=== PATIENT | female | born 1995 ===

== ENCOUNTER 2018-07-05 06:14 | Observation (INO) | payer BC, OTHER ==
[2018-07-05 06:15] VITALS: BMI 26.6
[2018-07-05] MEDS ORDERED: Sodium Chloride 0.9% 1,000 ML IV STA (07:27)
[2018-07-05 07:45] LABS: BASO # 0.02 K/mm3 (0.0-2.0); BASO % 0.2 % (0.0-3.0); EOS # 0.1 (0.0-0.7); EOS % 0.5 % (1.5-5.0); HEMOGLOBIN 14.1 g/dL (12.0-16.0); LYMPH # 3.1 (1.2-3.4); LYMPH % 24.3 % (22.0-35.0); MEAN CELL VOLUME 88.7 fl (80.0-105.0); MEAN CORPUSCULAR HEMOGLOBIN 30.1 pg (25.0-35.0); MONO # 0.5 (0.1-0.6); MONO % 4.1 % (1.0-6.0); RBC 4.68 10^6/uL (3.5-6.1); RED CELL DISTRIBUTION WIDTH 12.6 % (11.5-14.5); WHITE BLOOD COUNT 12.8 10^3/uL (4.5-11.0)
[2018-07-05 07:55] LABS: INR 1.04; PARTIAL THROMBOPLASTIN TIME 34.3 Seconds (26.9-38.3); PROTHROMBIN TIME 11.8 SECONDS (9.4-12.5)
[2018-07-05 07:57] LABS: ALB/GLOB RATIO 1.4 (1.1-1.8); ALBUMIN 4.9 g/dL (3.0-4.8); ALT/SGPT 30 U/L (7-56); AST/SGOT 36 U/L (14-36); BLOOD UREA NITROGEN 15 mg/dL (7-21); CALCIUM 9.5 mg/dL (8.4-10.5); GFR NON-AFRICAN AMERICAN > 60; LIPASE 31 U/L (23-300)
[2018-07-05 08:05] LABS: URINE BILIRUBIN NEGATIVE (NEGATIVE); URINE BLOOD LARGE (NEGATIVE); URINE GLUCOSE (UA) NEGATIVE (NEGATIVE); URINE LEUKOCYTE ESTERASE TRACE Leu/uL (NEGATIVE); URINE PROTEIN 100 mg/dL (<30 mg/dL); URINE UROBILINOGEN 0.2 E.U./dL (<1 E.U./dL)
[2018-07-05 08:07] LABS: URINE APPEARANCE SL CLOUDY (CLEAR); URINE COLOR LIGHT RED (YELLOW)
--- NOTE | 2018-07-05 08:11 | ED PDOC ---
Arrival/HPI - General Chief Complaint: GI Problem Time Seen by Provider: 07/05/18 07:03 Historian: Patient - History of Present Illness Narrative History of Present Illness (Text): 07/05/18 07:40 22 year old female, with past medical history of questionable gallbladder issue, presents to the ED for evaluation of abdominal pain, nausea and vomiting since waking up at 5 am this morning. Patient states pain is localized to her ep igastric and ana-umbilical region, inconsistent with her cramping menstrual cycle pain. Patient reports associated nausea and multiple episodes of vomiting (4-5), with some streak of blood in emesis. Patient reports eating tuna salad at 10pm last night and states no one else ate the same salad in her family. Patient denies any other somatic complaints. Patient denies any fevers, chills, headache, dizziness, chest pain, shortness of breath, dyspnea on exertion, cough, hematochezia, constipation, diarrhea, rash, back pain, neck pain, or any other complaints. Patient states she is currently on her menstrual cycle. Time/Duration: 1-3 hours Symptom Onset: Gradual Symptom Course: Unchanged Activities at Onset: Light Context: Home Past Medical History - Provider Review Nursing Documentation Reviewed: Yes - Infectious Disease Hx of Infectious Diseases: None - Cardiac Hx Cardiac Disorders: No - Pulmonary Hx Respiratory Disorders: No - Neurological Hx Neurological Disorder: No - HEENT Hx HEENT Disorder: No - Renal Hx Renal Disorder: No - Endocrine/Metabolic Hx Endocrine Disorders: No - Hematological/Oncological Hx Blood Disorders: No - Integumentary Hx Dermatological Disorder: No - Musculoskeletal/Rheumatological Hx Musculoskeletal Disorders: No Hx Falls: No - Gastrointestinal Hx Gastrointestinal Disorders: Yes Hx Gall Bladder Disease: Yes (GALLSTONES ,GALLBLADDER POLYPS) - Genitourinary/Gynecological Hx Genitourinary Disorders: No - Psychiatric Hx Depression: No Hx Emotional Abuse: No Hx Physical Abuse: No Hx Substance Use: No - Anesthesia Hx Anesthesia: No - Suicidal Assessment Feels Threatened In Home Enviroment: No Family/Social History - Physician Review Nursing Documentation Reviewed: Yes Family/Social History: Unknown Family HX Smoking Status: Unknown If Ever Smoked Hx Alcohol Use: No Hx Substance Use: No Hx Substance Use Treatment: No Allergies/Home Meds Allergies/Adverse Reactions: Allergies No Known Allergies Allergy (Verified 06/04/16 14:36) Home Medications: Home Meds Medication Instructions Recorded Confirmed No Known Home Med 12/13/11 07/05/18 Review of Systems - Physician Review All systems were reviewed & negative as marked: Yes - Review of Systems Constitutional: absent: Fatigue, Weight Change, Fevers Eyes: absent: Vision Changes ENT: absent: Hearing Changes Respiratory: absent: SOB, Cough Cardiovascular: absent: Chest Pain Gastrointestinal: Abdominal Pain, Nausea, Vomiting. absent: Constipation, Diarrhea, Hematochezia Genitourinary Female: absent: Dysuria, Frequency, Hematuria, Urine Output Changes Musculoskeletal: absent: Back Pain, Neck Pain Skin: absent: Rash Neurological: absent: Headache, Dizziness Psychiatric: absent: Anxiety Physical Exam Vital Signs Reviewed: Yes Vital Signs Temp Pulse Resp BP Pulse Ox 07/05/18 06:26 97.7 F 70 18 141/110 H 97 Temperature: Afebrile Blood Pressure: Hypertensive Pulse: Regular Respiratory Rate: Normal Appearance: Positive for: Well-Appearing, Non-Toxic, Comfortable Pain Distress: None Mental Status: Positive for: Alert and Oriented X 3 - Systems Exam Head: Present: Atraumatic, Normocephalic Pupils: Present: PERRL Extroacular Muscles: Present: EOMI Conjunctiva: Present: Normal Mouth: Present: Moist Mucous Membranes Neck: Present: Normal Range of Motion Respiratory/Chest: Present: Clear to Auscultation, Good Air Exchange. No: Respiratory Distress, Accessory Muscle Use Cardiovascular: Present: Regular Rate and Rhythm, Normal S1, S2. No: Murmurs Abdomen: Present: Tenderness (Epigastric and RUQ ana-umbilical tenderness). No: Distention, Peritoneal Signs Back: Present: Normal Inspection Upper Extremity: Present: Normal Inspection. No: Cyanosis, Edema Lower Extremity: Present: Normal Inspection. No: Edema Neurological: Present: GCS=15, CN II-XII Intact, Speech Normal Skin: Present: Warm, Dry, Normal Color. No: Rashes Psychiatric: Present: Alert, Oriented x 3, Normal Insight, Normal Concentration Medical Decision Making ED Course and Treatment: 07/05/18 07:43 Impression: 22 year old female presents to the Emergency department for evaluation abdominal pain, nausea and vomiting. RUQ, Epigastric and Ana-umbilical pain on exam. No peritoneal signs. No chest pain or sob. No back pain. No constipation or diarrhea. ?Gallbladder issue vs Appdx vs gastritis. Pt notes pain 4d prior followed by no pain x2d until this AM. She notes this pain she feels now is different from her normal pain. Differential Diagnosis included but are not limited to: -- Cholecystitis -- Cholelithiasis -- Appendicitis Plan: -- Labs -- CT of Abdomen/Pelvis -- Pepcid -- IV Fluids -- Zofran -- Urine Culture -- Urinalysis -- US of Gallbladder and Common duct -- Reassess and disposition Prior Visits: Notes and results from previous visits were reviewed. Progress Notes: 07/05/18 07:40 EKG reviewed, shows NSR @ 62 bpm, No STEMI. 07/05/18 09:04 CT of Abdomen/Pelvis reviewed by radiologist, shows: IMPRESSION: Unremarkable contrast enhanced CT of the abdomen and pelvis. No evidence of appendicitis 07/05/18 10:03 labs largely unremarkable. Urine w/ WBC- 2-5 WBC w/ bacteria and nitrites. no CVAT or suprapubic pain. Pending US. Pt in NAD. Well appearing. 07/05/18 11:01 Abdominal US reviewed by radiologist, shows: IMPRESSION: Cholelithiasis. No sonographic evidence of acute cholecystitis. Similar findings identified on the ultrasound performed 06/04/2016. 07/05/18 11:29 Pt endorsed continued pain. Given RUQ pain, surgery consulted. 07/05/18 12:37 No intervention at this time per surgery Appreciate consultation w/ Dr. Osborne: PMD: to admit to his service - Lab Interpretations Lab Results: PT 11.8 SECONDS (9.4-12.5) 07/05/18 06:40 INR 1.04 07/05/18 06:40 APTT 34.3 Seconds (26.9-38.3) 07/05/18 06:40 Total Bilirubin 0.2 mg/dL (0.2-1.3) 07/05/18 06:40 AST 36 U/L (14-36) 07/05/18 06:40 ALT 30 U/L (7-56) 07/05/18 06:40 Alkaline Phosphatase 94 U/L (38-126) 07/05/18 06:40 Total Protein 8.5 g/dL (5.8-8.3) H 07/05/18 06:40 Albumin 4.9 g/dL (3.0-4.8) H 07/05/18 06:40 Globulin 3.6 gm/dL 07/05/18 06:40 Albumin/Globulin Ratio 1.4 (1.1-1.8) 07/05/18 06:40 Lipase 31 U/L (23-300) 07/05/18 06:40 - RAD Interpretation Radiology Orders: 07/05/18 07:43 ABD & PELVIS IV CONTRAST ONLY [CT] Stat GALLBLADDER & COMMON DUCT [US] Stat Poultry Helper: Radiologist - EKG Interpretation Interpreted by ED Physician: Yes Type: 12 lead EKG - Medication Orders Current Medication Orders: Sodium Chloride (Sodium Chloride 0.9%) 1,000 mls @ 999 mls/hr IV .Q1H1M STA Stop: 07/05/18 08:27 Last Admin: 07/05/18 07:41 Dose: 999 mls/hr eMAR Start Stop Document 07/05/18 07:41 MA (Rec: 07/05/18 07:41 MA [id number]) Intravenous Solution Start Date 07/05/18 Start Time 07:41 Discontinued Medications Famotidine (Pepcid) 20 mg IVP STAT STA Stop: 07/05/18 07:56 Ondansetron HCl (Zofran Inj) 4 mg IVP STAT STA Stop: 07/05/18 07:28 Last Admin: 07/05/18 07:41 Dose: 4 mg IVP Administration Document 07/05/18 07:41 MA (Rec: 07/05/18 07:41 MA [id number]) Charges for Administration # of IVP Administrations 1 - Scribe Statement The provider has reviewed the documentation as recorded by the Adanibbravo Horn. All medical record entries made by the Adanibbravo were at my direction and personally dictated by me. I have reviewed the chart and agree that the record accurately reflects my personal performance of the history, physical exam, medical decision making, and the department course for this patient. I have also personally directed, reviewed, and agree with the discharge instructions and disposition. Disposition/Present on Arrival - Present on Arrival Any Indicators Present on Arrival: No History of DVT/PE: No History of Uncontrolled Diabetes: No Urinary Catheter: No History of Decub. Ulcer: No History Surgical Site Infection Following: None - Disposition Have Diagnosis and Disposition been Completed?: Yes Diagnosis: UTI (urinary tract infection), Abdominal pain Disposition Time: 12:37 Patient Problems: Current Active Problems Problem Status Onset Abdominal pain Acute UTI (urinary tract infection) Acute Condition: STABLE
[2018-07-05 08:16] LABS: URINE BACTERIA MOD /hpf; URINE RBC 25 - 30 /hpf (0-2)
[2018-07-05 08:17] LABS: URINE COARSE GRANULAR CAST TRACE /hpf
[2018-07-05] MEDS ORDERED: Iohexol 350 MG/100 ML VIAL ONE (08:35)
[2018-07-05] MEDS ORDERED: Morphine 4 mg/ml ISec IVP STA (08:56)
--- NOTE | 2018-07-05 09:01 | CT ---
Date of service: 07/05/2018 PROCEDURE: CT Abdomen and Pelvis with contrast HISTORY: ruq, periumbilical pain COMPARISON: None. TECHNIQUE: Contrast dose: 100 cc of Omni 350 Radiation dose: Total exam DLP = 771.25 mGy-cm. This CT exam was performed using one or more of the following dose reduction techniques: Automated exposure control, adjustment of the mA and/or kV according to patient size, and/or use of iterative reconstruction technique. FINDINGS: LOWER THORAX: Unremarkable. LIVER: Unremarkable. No gross lesion or ductal dilatation. GALLBLADDER AND BILE DUCTS: Unremarkable. PANCREAS: Unremarkable. No gross lesion or ductal dilatation. SPLEEN: Unremarkable. ADRENALS: Unremarkable. No mass. KIDNEYS AND URETERS: Unremarkable. No hydronephrosis. No solid mass. VASCULATURE: Unremarkable. No aortic aneurysm. No aortic atherosclerotic calcification or mural plaque present. BOWEL: Unremarkable. No obstruction. No gross mural thickening. APPENDIX: Normal appendix. PERITONEUM: Unremarkable. No free fluid. No free air. LYMPH NODES: Unremarkable. No enlarged lymph nodes. BLADDER: Unremarkable. REPRODUCTIVE: Unremarkable. BONES: No acute fracture. OTHER FINDINGS: None. IMPRESSION: Unremarkable contrast enhanced CT of the abdomen and pelvis. No evidence of appendicitis
--- NOTE | 2018-07-05 10:53 | US ---
Date of service: 07/05/2018 HISTORY: Right upper quadrant pain. COMPARISON: 06/04/2016 abdominal ultrasound. July 05, 2018 CT abdomen and pelvis. TECHNIQUE: Sonographic evaluation of the right upper quadrant of the abdomen. FINDINGS: LIVER: Measures 16.0 cm in length. Patent portal vein. Portal venous flow: Hepatopetal. Unremarkable echogenicity of the liver parenchyma. No mass. No intrahepatic bile duct dilatation. GALLBLADDER: Cholelithiasis. Negative study for gallbladder wall thickening, pericholecystic fluid, sonographic Navarrete's sign. COMMON BILE DUCT: Measures 4.7 mm. No stones. No dilatation. PANCREAS: Unremarkable as visualized. No mass. No ductal dilatation. RIGHT KIDNEY: Measures 0.2 x 9.4 cm in length. Normal echogenicity. No calculus, mass, or hydronephrosis. AORTA: No aneurysmal dilatation. IVC: Unremarkable. OTHER FINDINGS: None . IMPRESSION: Cholelithiasis. No sonographic evidence of acute cholecystitis. Similar findings identified on the ultrasound performed 06/04/2016.
[2018-07-05] MEDS ORDERED: cefTRIAXone 1 gm 1 GM/100 ML BAG IVPB ONE (12:35)
[2018-07-05] MEDS ORDERED: Morphine 2 mg/ml ISec IVP PRN (13:01)
[2018-07-05] MEDS: Sodium Chloride 0.45% 1,000 ML IV SCH (14:14)
--- NOTE | 2018-07-05 14:46 | CP.PCM.CON ---
History of Present Illness - History of Present Illness History of Present Illness: Surgery Consult for Dr. Azul 22F with PMH of gallbladder polyps and mild self-diagnosed GERD presented to the ED with nausea, vomiting, and abdominal pain. It began at 3:00AM today with vomiting followed by abdominal pain. Pain is located in the hypogastrum, radiates to the periumbilical area, and describes the pain as "squeezing" and 7/10 currently. Patient correlates pain with food consumption. Patient claims vomit was streaked with a small portion of blood. This feeling has happened 2 and 4 years ago, both times lasted 24 hours and was treated with supportive care. Patient is currently on day one of her menstrual period and claims this pain is separate from menstrual cramps. Denies fever/chills, dysuria, shortness of breath, chest pain. PSH: Denies SH: Prior [employer] employment, Denies tobacco, EtOH, recreational drugs FH: Father with "gallbladder issues" ALL: NKDA Meds: Occasional antacids PMD: Dr. Miguel Angel Osborne Review of Systems - Review of Systems Review of Systems: 12 point ROS as per HPI Past Patient History - Infectious Disease Hx of Infectious Diseases: None - Past Social History Smoking Status: Unknown If Ever Smoked - CARDIAC Hx Cardiac Disorders: No - PULMONARY Hx Respiratory Disorders: No - NEUROLOGICAL Hx Neurological Disorder: No - HEENT Hx HEENT Problems: No - RENAL Hx Chronic Kidney Disease: No - ENDOCRINE/METABOLIC Hx Endocrine Disorders: No - HEMATOLOGICAL/ONCOLOGICAL Hx Blood Disorders: No - INTEGUMENTARY Hx Dermatological Problems: No - MUSCULOSKELETAL/RHEUMATOLOGICAL Hx Musculoskeletal Disorders: No Hx Falls: No - GASTROINTESTINAL Hx Gastrointestinal Disorders: Yes Hx Gall Bladder Disease: Yes (GALLSTONES ,GALLBLADDER POLYPS) - GENITOURINARY/GYNECOLOGICAL Hx Genitourinary Disorders: No - PSYCHIATRIC Hx Depression: No Hx Emotional Abuse: No Hx Physical Abuse: No Hx Substance Use: No - SURGICAL HISTORY Hx Surgeries: No - ANESTHESIA Hx Anesthesia: No Meds Allergies/Adverse Reactions: Allergies Allergy/AdvReac Type Severity Reaction Status Date / Time No Known Allergies Allergy Verified 06/04/16 14:36 - Medications Medications: Current Medications Famotidine (Pepcid) 20 mg IVP BID ELIZABET Ceftriaxone Sodium (Rocephin 1 Gram Ivpb) 1 gm in 100 mls @ 100 mls/hr IVPB DAILY ELIZABET; Protocol Sodium Chloride (Sodium Chloride 0.45%) 1,000 mls @ 80 mls/hr IV .[id number] ELIZABET Last Admin: 07/05/18 14:14 Dose: 80 mls/hr Morphine Sulfate (Morphine) 2 mg IVP Q4 PRN PRN Reason: Pain, moderate (4-7) Physical Exam - Constitutional Appears: No Acute Distress - Head Exam Head Exam: ATRAUMATIC, NORMAL INSPECTION, NORMOCEPHALIC - Eye Exam Eye Exam: EOMI, Normal appearance, PERRL - ENT Exam ENT Exam: Mucous Membranes Moist - Neck Exam Neck exam: Positive for: Normal Inspection - Respiratory Exam Respiratory Exam: Clear to Auscultation Bilateral, NORMAL BREATHING PATTERN. absent: Rales, Rhonchi, Wheezes - Cardiovascular Exam Cardiovascular Exam: REGULAR RHYTHM, +S1, +S2 - GI/Abdominal Exam GI & Abdominal Exam: Soft, Tenderness Additional comments: Navarrete sign negative, Hypogastrum and periumbilical tenderness Results - Vital Signs Recent Vital Signs: Last Vital Signs Temp 97.7 F 07/05/18 06:26 Pulse 58 L 07/05/18 13:16 Resp 18 07/05/18 13:16 BP 146/87 07/05/18 13:16 Pulse Ox 95 07/05/18 13:16 - Labs Result Diagrams: 07/05/18 06:40 07/05/18 06:40 Labs: Laboratory Results - last 24 hr 07/05/18 07/05/18 07/05/18 06:40 06:40 06:40 WBC 12.8 H RBC 4.68 Hgb 14.1 Hct 41.5 MCV 88.7 MCH 30.1 MCHC 34.0 RDW 12.6 Plt Count 259 MPV 10.0 Neut % (Auto) 70.9 H Lymph % (Auto) 24.3 [place] % (Auto) 4.1 Eos % (Auto) 0.5 L Baso % (Auto) 0.2 Lymph # (Auto) 3.1 [place] # (Auto) 0.5 Eos # (Auto) 0.1 Baso # (Auto) 0.02 Absolute Neuts (auto) 9.08 H PT 11.8 INR 1.04 APTT 34.3 Sodium Potassium Chloride Carbon Dioxide Anion Gap BUN Creatinine Est GFR ( Amer) Est GFR (Non-Af Amer) Random Glucose Calcium Magnesium Total Bilirubin AST ALT Alkaline Phosphatase Total Protein Albumin Globulin Albumin/Globulin Ratio Lipase Urine Color Light red Urine Appearance Sl cloudy Urine pH 6.0 Ur Specific [place] >= 1.030 Urine Protein 100 H Urine Glucose (UA) Negative Urine Ketones Trace H Urine Blood Large H Urine Nitrate Positive H Urine Bilirubin Negative Urine Urobilinogen 0.2 Ur Leukocyte Esterase Trace H Urine RBC 25 - 30 H Urine WBC 2 - 5 Ur Epithelial Cells 4 - 5 Urine Bacteria Mod Coarse Granular Casts Trace Urine Other Uyeast Blood Type Blood Type Confirm Antibody Screen BBK History Checked 07/05/18 07/05/18 07/05/18 06:40 08:30 09:00 WBC RBC Hgb Hct MCV MCH MCHC RDW Plt Count MPV Neut % (Auto) Lymph % (Auto) [place] % (Auto) Eos % (Auto) Baso % (Auto) Lymph # (Auto) [place] # (Auto) Eos # (Auto) Baso # (Auto) Absolute Neuts (auto) PT INR APTT Sodium 142 Potassium 3.8 Chloride 104 Carbon Dioxide 26 Anion Gap 16 BUN 15 Creatinine 0.8 Est GFR ( Amer) > 60 Est GFR (Non-Af Amer) > 60 Random Glucose 111 H Calcium 9.5 Magnesium 1.9 Total Bilirubin 0.2 AST 36 ALT 30 Alkaline Phosphatase 94 Total Protein 8.5 H Albumin 4.9 H Globulin 3.6 Albumin/Globulin Ratio 1.4 Lipase 31 Urine Color Urine Appearance Urine pH Ur Specific [place] Urine Protein Urine Glucose (UA) Urine Ketones Urine Blood Urine Nitrate Urine Bilirubin Urine Urobilinogen Ur Leukocyte Esterase Urine RBC Urine WBC Ur Epithelial Cells Urine Bacteria Coarse Granular Casts Urine Other Blood Type O POSITIVE Blood Type Confirm O POSITIVE Antibody Screen Negative BBK History Checked No verified bt Assessment & Plan - Assessment and Plan (Free Text) Assessment: Ultrasound: Cholelithiasis Pelvic CT: No evidence of appendicitis This is a 22F with PMH of gall bladder polyps and GERD who presented to the ED with nausea, vomiting, and abdominal pain. Differential Diagnosis includes: -Cholelithiasis - Confirmed -Cystitis -Gastritis Plan: No acute surgery needed at this time. -Pain managment as per primary team -UTI noted on labs; Continue IV rocephin -No surgical intervention warranted at this time -Outpatient followup for elective cholecystectomy with Dr. Jorge Alberto Moya PGY-1
--- NOTE | 2018-07-05 15:37 | CP.PCM.CON ---
<Jaqueline Byrnes - Last Filed: 07/05/18 16:48> History of Present Illness - History of Present Illness History of Present Illness: PGY5 Initial GI Consult Note Edith Magaña is a 22F w/ hx of cholelithiasis who presents to the Er with complaints if eigastric and RUQ abd pain. Pt states that the pain started 3 days prior and it was sudden and located in the epigastrum and RUQ. Pt states that th e pain was intermittent on the first day with associated vomiting and diarrhea (non-bloody). Pt states that her sypmtoms resolved by the next day. as per pt, she again started experiencing RUQ pain, yesterday, she graded it a 10 out of 10 and it was radiating to the back. Pt denies any fever, chills or diaphoresis. Pt states that she has a hx of cholelithiasis and was previously advised to remove her bladder. Denies ant recent travel or sick contacts. Notes having tuna salad before events. PSH: Denies SH: Prior [employer] employment, Denies tobacco, EtOH, recreational drugs FH: Father with "gallbladder issues" Endo Hx: denies ROS: 12 point ROS conducted, neg other than above Past Patient History - Infectious Disease Hx of Infectious Diseases: None - Past Social History Smoking Status: Unknown If Ever Smoked - CARDIAC Hx Cardiac Disorders: No - PULMONARY Hx Respiratory Disorders: No - NEUROLOGICAL Hx Neurological Disorder: No - HEENT Hx HEENT Problems: No - RENAL Hx Chronic Kidney Disease: No - ENDOCRINE/METABOLIC Hx Endocrine Disorders: No - HEMATOLOGICAL/ONCOLOGICAL Hx Blood Disorders: No - INTEGUMENTARY Hx Dermatological Problems: No - MUSCULOSKELETAL/RHEUMATOLOGICAL Hx Musculoskeletal Disorders: No Hx Falls: No - GASTROINTESTINAL Hx Gastrointestinal Disorders: Yes Hx Gall Bladder Disease: Yes (GALLSTONES ,GALLBLADDER POLYPS) - GENITOURINARY/GYNECOLOGICAL Hx Genitourinary Disorders: No - PSYCHIATRIC Hx Depression: No Hx Emotional Abuse: No Hx Physical Abuse: No Hx Substance Use: No - SURGICAL HISTORY Hx Surgeries: No - ANESTHESIA Hx Anesthesia: No Meds Allergies/Adverse Reactions: Allergies Allergy/AdvReac Type Severity Reaction Status Date / Time No Known Allergies Allergy Verified 06/04/16 14:36 - Medications Medications: Current Medications Famotidine (Pepcid) 20 mg IVP BID [facility] Ceftriaxone Sodium (Rocephin 1 Gram Ivpb) 1 gm in 100 mls @ 100 mls/hr IVPB DAILY [facility]; Protocol Sodium Chloride (Sodium Chloride 0.45%) 1,000 mls @ 80 mls/hr IV .[id number] [facility] Last Admin: 07/05/18 14:14 Dose: 80 mls/hr Morphine Sulfate (Morphine) 2 mg IVP Q4 PRN PRN Reason: Pain, moderate (4-7) Pantoprazole Sodium (Protonix Inj) 40 mg IVP DAILY [facility] Physical Exam - Constitutional Appears: In Acute Distress - Head Exam Head Exam: ATRAUMATIC, NORMOCEPHALIC - Eye Exam Eye Exam: Normal appearance - ENT Exam ENT Exam: Mucous Membranes Moist, Normal Exam - Neck Exam Neck exam: Positive for: Normal Inspection - Respiratory Exam Respiratory Exam: Clear to Auscultation Bilateral, NORMAL BREATHING PATTERN. absent: Rales, Rhonchi, Wheezes, Respiratory Distress - Cardiovascular Exam Cardiovascular Exam: REGULAR RHYTHM, +S1, +S2 - GI/Abdominal Exam GI & Abdominal Exam: Normal Bowel Sounds, Soft, Tenderness (epigastric). absent: Distended, Guarding, Hernia, Organomegaly, Rebound - Extremities Exam Extremities exam: Negative for: joint swelling, pedal edema - Back Exam Back exam: NORMAL INSPECTION - Neurological Exam Neurological exam: Alert, Oriented x3 - Psychiatric Exam Psychiatric exam: Normal Affect, Normal Mood - Skin Skin Exam: Dry, Intact, Normal Color, Warm Results - Vital Signs Recent Vital Signs: Last Vital Signs Temp 97.7 F 07/05/18 06:26 Pulse 58 L 07/05/18 13:16 Resp 18 07/05/18 13:16 BP 146/87 07/05/18 13:16 Pulse Ox 95 07/05/18 13:16 - Labs Result Diagrams: 07/05/18 06:40 07/05/18 06:40 Labs: Laboratory Results - last 24 hr 07/05/18 07/05/18 07/05/18 06:40 06:40 06:40 WBC 12.8 H RBC 4.68 Hgb 14.1 Hct 41.5 MCV 88.7 MCH 30.1 MCHC 34.0 RDW 12.6 Plt Count 259 MPV 10.0 Neut % (Auto) 70.9 H Lymph % (Auto) 24.3 Hemphill % (Auto) 4.1 Eos % (Auto) 0.5 L Baso % (Auto) 0.2 Lymph # (Auto) 3.1 Hemphill # (Auto) 0.5 Eos # (Auto) 0.1 Baso # (Auto) 0.02 Absolute Neuts (auto) 9.08 H PT 11.8 INR 1.04 APTT 34.3 Sodium Potassium Chloride Carbon Dioxide Anion Gap BUN Creatinine Est GFR ( Amer) Est GFR (Non-Af Amer) Random Glucose Calcium Magnesium Total Bilirubin AST ALT Alkaline Phosphatase Total Protein Albumin Globulin Albumin/Globulin Ratio Lipase Urine Color Light red Urine Appearance Sl cloudy Urine pH 6.0 Ur Specific Donalds >= 1.030 Urine Protein 100 H Urine Glucose (UA) Negative Urine Ketones Trace H Urine Blood Large H Urine Nitrate Positive H Urine Bilirubin Negative Urine Urobilinogen 0.2 Ur Leukocyte Esterase Trace H Urine RBC 25 - 30 H Urine WBC 2 - 5 Ur Epithelial Cells 4 - 5 Urine Bacteria Mod Coarse Granular Casts Trace Urine Other Uyeast Blood Type Blood Type Confirm Antibody Screen BBK History Checked 07/05/18 07/05/18 07/05/18 06:40 08:30 09:00 WBC RBC Hgb Hct MCV MCH MCHC RDW Plt Count MPV Neut % (Auto) Lymph % (Auto) Hemphill % (Auto) Eos % (Auto) Baso % (Auto) Lymph # (Auto) Hemphill # (Auto) Eos # (Auto) Baso # (Auto) Absolute Neuts (auto) PT INR APTT Sodium 142 Potassium 3.8 Chloride 104 Carbon Dioxide 26 Anion Gap 16 BUN 15 Creatinine 0.8 Est GFR ( Amer) > 60 Est GFR (Non-Af Amer) > 60 Random Glucose 111 H Calcium 9.5 Magnesium 1.9 Total Bilirubin 0.2 AST 36 ALT 30 Alkaline Phosphatase 94 Total Protein 8.5 H Albumin 4.9 H Globulin 3.6 Albumin/Globulin Ratio 1.4 Lipase 31 Urine Color Urine Appearance Urine pH Ur Specific Donalds Urine Protein Urine Glucose (UA) Urine Ketones Urine Blood Urine Nitrate Urine Bilirubin Urine Urobilinogen Ur Leukocyte Esterase Urine RBC Urine WBC Ur Epithelial Cells Urine Bacteria Coarse Granular Casts Urine Other Blood Type O POSITIVE Blood Type Confirm O POSITIVE Antibody Screen Negative BBK History Checked No verified bt Assessment & Plan - Assessment and Plan (Free Text) Assessment: Edith Magaña is a 22F w/ hx of cholelithiasis who presents to the Er with complaints if eigastric and RUQ abd pain. Abd U/S cholithiasis, CT abd: no acute process Abd pain etiology unclear DDx: Gastroenteritis, biliary colic Cholelithiasis Vomiting (resolved) Diarrhea (resolved) Plan: -start Protonix 40mg daily -advance diet to regular -zofran PRN -Surgery on board -conservative management from GI standpoint -no plan for endoscopy at this time -continue abx as per primary team D/W Dr. Sauceda <Navi Sauceda - Last Filed: 07/06/18 08:12> Meds - Medications Medications: Current Medications Famotidine (Pepcid) 20 mg IVP BID [facility] Last Admin: 07/05/18 18:28 Dose: 20 mg Ceftriaxone Sodium (Rocephin 1 Gram Ivpb) 1 gm in 100 mls @ 100 mls/hr IVPB DAILY [facility]; Protocol Sodium Chloride (Sodium Chloride 0.45%) 1,000 mls @ 80 mls/hr IV .[id number] [facility] Last Admin: 07/06/18 05:37 Dose: 80 mls/hr Morphine Sulfate (Morphine) 2 mg IVP Q4 PRN PRN Reason: Pain, moderate (4-7) Pantoprazole Sodium (Protonix Inj) 40 mg IVP DAILY [facility] Last Admin: 07/05/18 15:47 Dose: 40 mg Results - Vital Signs Recent Vital Signs: Last Vital Signs Temp 97.7 F 07/05/18 06:26 Pulse 61 07/05/18 18:07 Resp 16 07/05/18 18:07 BP 121/71 07/05/18 18:07 Pulse Ox 98 07/05/18 18:07 - Labs Result Diagrams: 07/05/18 06:40 07/05/18 06:40 Labs: Laboratory Results - last 24 hr 07/05/18 07/05/18 07/05/18 06:40 08:30 09:00 POC Glucose (mg/dL) Urine RBC 25 - 30 H Urine WBC 2 - 5 Ur Epithelial Cells 4 - 5 Urine Bacteria Mod Coarse Granular Casts Trace Urine Other Uyeast Blood Type O POSITIVE Blood Type Confirm O POSITIVE Antibody Screen Negative BBK History Checked No verified bt 07/06/18 07:30 POC Glucose (mg/dL) 113 H Urine RBC Urine WBC Ur Epithelial Cells Urine Bacteria Coarse Granular Casts Urine Other Blood Type Blood Type Confirm Antibody Screen BBK History Checked Attending/Attestation - Attestation I have fully participated in the care of the patient.: Yes I have reviewed all pertinent clinical information: Yes Notes (Text): 07/06/18 08:11 Abdominal pain Cholelithiasis - Advance diet to low fat as tolerated - Anti-emetic therapy PRN - Follow up surgical recommendations regarding potential cholecystectomy - LFTs normal, continue to monitor - No planned GI intervention, provided patient is tolerating PO diet can likely be discharged home with subsequent outpatient follow up
--- NOTE | 2018-07-05 19:07 | HP ---
DATE OF EXAM: 07/05/2018 HISTORY OF PRESENT ILLNESS: I know her very well from the office. The patient is a 22-year-old female who presents with severe abdominal pain, nausea, vomiting since 5 a.m. this morning, it has not stopped. She is here now still with the same cramping and abdominal pain. Also some problems urinating. PAST MEDICAL HISTORY: She has a past medical history of gallbladder disease in the past. She has had gallstones and gallbladder polyps but no surgery. PAST SURGICAL HISTORY: No surgeries. ALLERGIES: NO KNOWN DRUG ALLERGIES. FAMILY HISTORY: Unknown family history. SOCIAL HISTORY: No smoker. No drinking. No drugs. MEDICATIONS: No medications. REVIEW OF SYSTEMS: No fatigue. No fevers. No vision changes. No hearing changes. No shortness of breath or cough. No chest pain or palpitations. She does have abdominal pain, nausea, vomiting. No constipation. No diarrhea. She does have problems urinating, increased lately. No back pain. No neck pain. No skin rashes. No headache. No dizziness. No anxiety. PHYSICAL EXAMINATION GENERAL: She is uncomfortable, little toxic. Alert and oriented x3. VITAL SIGNS: She has a 97.7 temperature, pulse 70, respiratory rate 18, 141/110 blood pressure, which is quite high from the pain, and 97% O2 sat. HEENT: Head is atraumatic, normocephalic. Extraocular muscles are intact. Pupils equally react to light and accommodation. Throat is moist. NECK: Neck is supple. CARDIOPULMONARY: Heart; regular rate. Normal S1, S2. LUNGS: Decreased breath sounds but clear to auscultation. No wheezes. No rhonchi. No rales. Poor inspiration. ABDOMEN: Is tender diffusely all over. Mildly distended. Right upper quadrant pain is the worst part of it. No back pain. No CVA tenderness. EXTREMITIES: No edema of the lower extremities. Can move all four extremities. NEUROLOGIC: GCS is 15. Cranial nerves II through XII grossly intact. There is normal speech. Alert and oriented x3. SKIN: Warm and dry. No apparent rashes or ulcers. LABORATORY DATA: She had some tests that were done. She had a CAT scan of the abdomen and pelvis and that showed unremarkable. No evidence of appendicitis. She had a gallbladder ultrasound, which showed cholelithiasis, no acute cholecystitis. She had blood tests. She has a positive large blood, positive nitrates, moderate bacteria in the urine. She has a 142 sodium, potassium 3.8, BUN 15, creatinine 0.8, GFR is greater than 60, sugar is 111, calcium is 9.5, magnesium 1.9, total bili is 0.2, AST is 36, ALT is 30, alk phos 94, total protein is 8.5, lipase is 31. INR is 1.04. We have a 12.8 white count high, 14.1 hemoglobin, 41.5 hematocrit, with 259 platelets. IMPRESSION: Edith Magaña with severe abdominal pain, possible urinary tract infection, and gallbladder disease. PLAN: She going to have a consult with Surgery and GI. She will be on IV fluids, Pepcid, morphine, Rocephin, Zofran. Hopefully she will improve. She will be put in observation and we will see how she does overnight. She will be on n.p.o. except for ice chips. Miguel Angel Osborne DO
--- NOTE | 2018-07-05 23:49 | CARD ---
APPROVED REPORT Date of service: 07/05/2018 EKG Measurement Heart [id number] <Conclusion> Normal sinus rhythm with sinus arrhythmia Normal ECG
[2018-07-06] MEDS: Sodium Chloride 0.45% 1,000 ML IV SCH (05:37)
[2018-07-06 08:20] VITALS: BP 100/59; PULSE 55; RESP 19; TEMP 98; O2SAT 96
--- NOTE | 2018-07-06 08:21 | CP.PCM.PN ---
<Jaqueline Byrnes - Last Filed: 07/06/18 08:22> Subjective - Date & Time of Evaluation Date of Evaluation: 07/06/18 Time of Evaluation: 07:00 - Subjective Subjective: PGY PGY 5 GI Follow-up Pt seen and examined bedside Denies any abd pain tolerated a salad last night +BM ROS: 12 point ROS conducted, neg other than above Objective - Vital Signs/Intake and Output Vital Signs (last 24 hours): Temp Pulse Resp BP Pulse Ox 97.7 F 61 16 121/71 98 07/05/18 06:26 07/05/18 18:07 07/05/18 18:07 07/05/18 18:07 07/05/18 18:07 - Medications Medications: Current Medications Famotidine (Pepcid) 20 mg IVP BID [facility] Last Admin: 07/05/18 18:28 Dose: 20 mg Ceftriaxone Sodium (Rocephin 1 Gram Ivpb) 1 gm in 100 mls @ 100 mls/hr IVPB DAILY [facility]; Protocol Sodium Chloride (Sodium Chloride 0.45%) 1,000 mls @ 80 mls/hr IV .[id number] [facility] Last Admin: 07/06/18 05:37 Dose: 80 mls/hr Morphine Sulfate (Morphine) 2 mg IVP Q4 PRN PRN Reason: Pain, moderate (4-7) Pantoprazole Sodium (Protonix Inj) 40 mg IVP DAILY [facility] Last Admin: 07/05/18 15:47 Dose: 40 mg - Labs Labs: 07/05/18 06:40 07/05/18 06:40 PT 11.8 SECONDS (9.4-12.5) 07/05/18 06:40 INR 1.04 07/05/18 06:40 APTT 34.3 Seconds (26.9-38.3) 07/05/18 06:40 - Constitutional Appears: Well, No Acute Distress - Head Exam Head Exam: ATRAUMATIC, NORMOCEPHALIC - Eye Exam Eye Exam: Normal appearance - ENT Exam ENT Exam: Mucous Membranes Moist, Normal Exam - Neck Exam Neck Exam: Normal Inspection - Respiratory Exam Respiratory Exam: Clear to Ausculation Bilateral, NORMAL BREATHING PATTERN. absent: Rales, Rhonchi, Wheezes, Respiratory Distress - Cardiovascular Exam Cardiovascular Exam: REGULAR RHYTHM, +S1, +S2 - GI/Abdominal Exam GI & Abdominal Exam: Soft, Normal Bowel Sounds. absent: Bruit, Distended, Firm, Guarding, Rigid, Tenderness, Mass, Organomegaly, Pulsatile Mass, Rebound - Extremities Exam Extremities Exam: absent: Joint Swelling, Pedal Edema - Neurological Exam Neurological Exam: Alert, Awake, Oriented x3 - Psychiatric Exam Psychiatric exam: Normal Affect, Normal Mood - Skin Skin Exam: Dry, Intact, Normal Color, Warm Assessment and Plan - Assessment and Plan (Free Text) Assessment: Edith Magaña is a 22F w/ hx of cholelithiasis who presents to the Er with complaints if eigastric and RUQ abd pain. Abd U/S cholithiasis, CT abd: no acute process Abd pain etiology unclear DDx: Gastroenteritis, biliary colic Cholelithiasis Vomiting (resolved) Diarrhea (resolved) Plan: -continue PPI Daily for the next 2-4 weeks -advance diet to regular -zofran PRN -Surgery on board, defered lap evgeny as oupt -conservative management from GI standpoint -no plan for endoscopy at this time -follow-up as outpt, if GERD symptoms are persistent for possible oupt EGD with Dr. Sauceda D/W Dr. Sauceda <Navi aSuceda - Last Filed: 07/06/18 11:13> Objective - Vital Signs/Intake and Output Vital Signs (last 24 hours): Temp Pulse Resp BP Pulse Ox 98 F 55 L 19 100/59 L 96 07/06/18 08:20 07/06/18 08:20 07/06/18 08:20 07/06/18 08:20 07/06/18 08:20 - Medications Medications: Current Medications Famotidine (Pepcid) 20 mg IVP BID [facility] Last Admin: 07/06/18 09:51 Dose: 20 mg Ceftriaxone Sodium (Rocephin 1 Gram Ivpb) 1 gm in 100 mls @ 100 mls/hr IVPB DAILY [facility]; Protocol Last Admin: 07/06/18 09:51 Dose: 100 mls/hr Sodium Chloride (Sodium Chloride 0.45%) 1,000 mls @ 80 mls/hr IV .[id number] [facility] Last Admin: 07/06/18 05:37 Dose: 80 mls/hr Morphine Sulfate (Morphine) 2 mg IVP Q4 PRN PRN Reason: Pain, moderate (4-7) Pantoprazole Sodium (Protonix Inj) 40 mg IVP DAILY [facility] Last Admin: 07/06/18 09:51 Dose: 40 mg - Labs Labs: 07/05/18 06:40 07/06/18 09:45 PT 11.8 SECONDS (9.4-12.5) 07/05/18 06:40 INR 1.04 07/05/18 06:40 APTT 34.3 Seconds (26.9-38.3) 07/05/18 06:40 Attending/Attestation - Attestation I have fully participated in the care of the patient.: Yes I have reviewed all pertinent clinical information, including history, physical exam and plan: Yes Notes (Text): 07/06/18 11:12 Abdominal pain - improved Cholelithiasis - Diet as tolerated - Continue with PPI therapy - Suggest additional outpatient GI and surgical follow up - No further planned GI intervention at this time, will sign off case. Please reconsult as necessary, thank you.
[2018-07-06] MEDS ORDERED: cefTRIAXone 1 gm 1 GM/100 ML BAG IVPB SCH (10:00)
[2018-07-06 10:24] LABS: ALB/GLOB RATIO 1.3 (1.1-1.8); ALBUMIN 3.9 g/dL (3.0-4.8); ALT/SGPT 18 U/L (7-56); AST/SGOT 30 U/L (14-36); BLOOD UREA NITROGEN 17 mg/dL (7-21); GFR NON-AFRICAN AMERICAN > 60
[2018-07-06 13:48] LABS: BASO # 0.03 K/mm3 (0.0-2.0); BASO % 0.4 % (0.0-3.0); EOS # 0.1 (0.0-0.7); EOS % 1.4 % (1.5-5.0); LYMPH # 3.3 (1.2-3.4); LYMPH % 47.7 % (22.0-35.0); MEAN CELL VOLUME 90.8 fl (80.0-105.0); MEAN CORPUSCULAR HEMOGLOBIN 29.7 pg (25.0-35.0); MEAN CORPUSCULAR HGB CONC 32.7 g/dl (31.0-37.0); MEAN PLATELET VOLUME 9.9 fl (7.0-11.0); MONO # 0.4 (0.1-0.6); MONO % 6.2 % (1.0-6.0); RBC 4.01 10^6/uL (3.5-6.1); RED CELL DISTRIBUTION WIDTH 12.9 % (11.5-14.5); WHITE BLOOD COUNT 6.9 10^3/uL (4.5-11.0)
[2018-07-06 13:51] LABS: HEMOGLOBIN 11.9 g/dL (12.0-16.0)
[2018-07-06] MEDS ORDERED: Amoxicillin-Clav 500-125 mg Tab PO SCH (22:00)
--- NOTE | 2018-07-06 22:50 | DS ---
HOSPITAL COURSE: She can be discharged today. She will be on observation level of care. She came in with abdominal pain, ended up with UTI, also gallstone. She is feeling better now. She is going to eat, if she does well for breakfast and lunch, we will discharge her. She will need to be put on Augmentin to finish out the urinary tract infection that she has. She will talk to me later, like to see her in the office either tomorrow or Tuesday or Tuesday whenever convenient for her. We discussed a low-fat diet and she will call me if anything changes. She was here for acute abdominal pain, gallstones, UTI, and abdominal pain. Miguel Angel Osborne DO
== END 2018-07-06 16:45 | disposition home or self-care (01) ==
LOC: ED 06:14 → INTOOBSV 12:35 → ERH 12:35 → 3RNO 18:14
PROVIDERS: ADMIT Family Medicine; ATTEND Family Medicine
DX: N39.0 Urinary tract infection, site not specified (principal); K80.20 Calculus of gallbladder without cholecystitis without obstruction; K21.9 Gastro-esophageal reflux disease without esophagitis
CPT/HCPCS: 36415; 74177; 76705; 80053; 81001; 81025; 82948; 83690; 83735; 85025; 85610; 85730; 86850; 86900; 87086; 93005; 96374; 99285; C9113; G0378; J0696; J1885; J2270; J2405; J7030; Q9967